=== PATIENT | female | born 1945 | race Caucasian/White ===

== ENCOUNTER 2017-05-04 12:52 | Inpatient (IN) | payer OTHER ==
[~2017-05-04] VITALS: Ht 170.2 cm; Wt 65.8 kg
[2017-05-04] MEDS ORDERED: GABAPENTIN100 MG (14:13)
[2017-05-04] MEDS ORDERED: ZOCOR40 MG (14:14)
[2017-05-04] MEDS ORDERED: GLIPIZIDE5 MG (14:14)
[2017-05-04] MEDS ORDERED: IRON18 MG (14:14)
[2017-05-04] MEDS ORDERED: ZESTRIL20 MG (14:15)
[2017-05-04] MEDS ORDERED: FOLGARD TABLET1 EACH (14:15)
[2017-06-03] MEDS ORDERED: GLIPIZIDE5 MG PO (14:10)
[2017-06-03] MEDS ORDERED: SIMVASTATIN40 MG PO (14:10)
[2017-06-03] MEDS ORDERED: TRAM1TAB98 PO (14:10)
[2017-06-03] MEDS ORDERED: LISINOPRIL20 MG PO (14:10)
[2017-06-03] MEDS ORDERED: HYDRALAZINE HCL25 MG PO (14:10)
== END 2017-06-03 16:52 | disposition home health service (06) | DRG 255 ==
LOC: ER 12:52 → MEDJ 20:59 → MEDI 20:59 → SEC-K 20:59 → MEDI 05-05 00:23 → MEDJ 05-23 13:25
PROC: 30233N1 Transfusion of Nonautologous Red Blood Cells into Peripheral Vein, Percutaneous Approach (ICD-10-PCS; principal; 2017-05-05)
PROC: BQ3MZZZ Magnetic Resonance Imaging (MRI) of Left Foot (ICD-10-PCS; 2017-05-05)
PROC: 0JBR0ZZ Excision of Left Foot Subcutaneous Tissue and Fascia, Open Approach (ICD-10-PCS; 2017-05-08)
PROC: 8E0ZXY6 Isolation (ICD-10-PCS; 2017-05-10)
PROC: 0JBR0ZZ Excision of Left Foot Subcutaneous Tissue and Fascia, Open Approach (ICD-10-PCS; 2017-05-12)
PROC: B44HZZZ Ultrasonography of Bilateral Lower Extremity Arteries (ICD-10-PCS; 2017-05-15)
PROC: 3E0F7GC Introduction of Other Therapeutic Substance into Respiratory Tract, Via Natural or Artificial Opening (ICD-10-PCS; 2017-05-16)
PROC: B246ZZZ Ultrasonography of Right and Left Heart (ICD-10-PCS; 2017-05-17)
PROC: 4A033R1 Measurement of Arterial Saturation, Peripheral, Percutaneous Approach (ICD-10-PCS; 2017-05-20)
PROC: 0W9B3ZX Drainage of Left Pleural Cavity, Percutaneous Approach, Diagnostic (ICD-10-PCS; 2017-05-21)
PROC: B32TYZZ Computerized Tomography (CT Scan) of Left Pulmonary Artery using Other Contrast (ICD-10-PCS; 2017-05-22)
PROC: B32SYZZ Computerized Tomography (CT Scan) of Right Pulmonary Artery using Other Contrast (ICD-10-PCS; 2017-05-22)
PROC: BH42ZZZ Ultrasonography of Bilateral Breasts (ICD-10-PCS; 2017-05-26)
PROC: 0Y6Q0Z0 Detachment at Left 1st Toe, Complete, Open Approach (ICD-10-PCS; 2017-05-27)
PROC: 0JBR0ZZ Excision of Left Foot Subcutaneous Tissue and Fascia, Open Approach (ICD-10-PCS; 2017-05-27)
DX: E11.52 Type 2 diabetes mellitus with diabetic peripheral angiopathy with gangrene (principal); I50.33 Acute on chronic diastolic (congestive) heart failure; J18.9 Pneumonia, unspecified organism; I96 Gangrene, not elsewhere classified; N17.8 Other acute kidney failure; J90 Pleural effusion, not elsewhere classified; J44.1 Chronic obstructive pulmonary disease with (acute) exacerbation; M86.672 Other chronic osteomyelitis, left ankle and foot; E78.4 Other hyperlipidemia; E11.42 Type 2 diabetes mellitus with diabetic polyneuropathy; E11.621 Type 2 diabetes mellitus with foot ulcer; L97.523 Non-pressure chronic ulcer of other part of left foot with necrosis of muscle; D64.89 Other specified anemias; B95.62 Methicillin resistant Staphylococcus aureus infection as the cause of diseases classified elsewhere; I27.29 Other secondary pulmonary hypertension; I10 Essential (primary) hypertension; R09.02 Hypoxemia; E11.69 Type 2 diabetes mellitus with other specified complication

== ENCOUNTER 2017-10-20 12:48 | Inpatient (IN) | payer OTHER ==
[~2017-10-20] VITALS: Ht 175.3 cm; Wt 61.2 kg
[~2017-10-20 12:48] MED LIST: FOLGARD TABLET1 EACH; GABAPENTIN100 MG; GLIPIZIDE5 MG; GLIPIZIDE5 MG PO; HYDRALAZINE HCL25 MG PO; IRON18 MG; LISINOPRIL20 MG PO; SIMVASTATIN40 MG PO; TRAM1TAB98 PO; ZESTRIL20 MG; ZOCOR40 MG
[2017-11-07] MEDS ORDERED: LIPITOR40 MG PO (09:33)
[2017-11-07] MEDS ORDERED: LOPRESSOR25 MG PO (09:33)
[2017-11-07] MEDS ORDERED: NORVASC2.5 M1 PO (09:33)
[2017-11-07] MEDS ORDERED: ASA-EC81 MG PO (09:34)
[2017-11-07] MEDS ORDERED: SERTRALINE HCL50 MG PO (09:38)
== END 2017-11-07 21:12 | disposition home or self-care (01) | DRG 673 ==
LOC: ER 12:48 → ICU-2 16:46 → MEDI 16:46 → ICU 16:46 → MEDI 10-28 20:34
PROC: 06HN33Z Insertion of Infusion Device into Left Femoral Vein, Percutaneous Approach (ICD-10-PCS; 2017-10-20)
PROC: 5A1D70Z Performance of Urinary Filtration, Intermittent, Less than 6 Hours Per Day (ICD-10-PCS; 2017-10-20)
PROC: 3E0F7GC Introduction of Other Therapeutic Substance into Respiratory Tract, Via Natural or Artificial Opening (ICD-10-PCS; 2017-10-20)
PROC: BW28ZZZ Computerized Tomography (CT Scan) of Head (ICD-10-PCS; 2017-10-20)
PROC: 30233N1 Transfusion of Nonautologous Red Blood Cells into Peripheral Vein, Percutaneous Approach (ICD-10-PCS; 2017-10-21)
PROC: BT43ZZZ Ultrasonography of Bilateral Kidneys (ICD-10-PCS; 2017-10-21)
PROC: 05H633Z Insertion of Infusion Device into Left Subclavian Vein, Percutaneous Approach (ICD-10-PCS; 2017-10-22)
PROC: 06PYX3Z Removal of Infusion Device from Lower Vein, External Approach (ICD-10-PCS; 2017-10-23)
PROC: 06HN33Z Insertion of Infusion Device into Left Femoral Vein, Percutaneous Approach (ICD-10-PCS; 2017-10-23)
PROC: B246ZZZ Ultrasonography of Right and Left Heart (ICD-10-PCS; 2017-10-27)
PROC: 0JBR0ZZ Excision of Left Foot Subcutaneous Tissue and Fascia, Open Approach (ICD-10-PCS; principal; 2017-10-31)
PROC: 05HM33Z Insertion of Infusion Device into Right Internal Jugular Vein, Percutaneous Approach (ICD-10-PCS; 2017-11-03)
PROC: B543ZZA Ultrasonography of Right Jugular Veins, Guidance (ICD-10-PCS; 2017-11-03)
DX: N17.8 Other acute kidney failure (principal); I21.A1 Myocardial infarction type 2; E87.2 Acidosis; J44.1 Chronic obstructive pulmonary disease with (acute) exacerbation; T82.41XA Breakdown (mechanical) of vascular dialysis catheter, initial encounter; I12.0 Hypertensive chronic kidney disease with stage 5 chronic kidney disease or end stage renal disease; L97.528 Non-pressure chronic ulcer of other part of left foot with other specified severity; I24.9 Acute ischemic heart disease, unspecified; J90 Pleural effusion, not elsewhere classified; R09.02 Hypoxemia; E87.5 Hyperkalemia; I27.29 Other secondary pulmonary hypertension; E78.4 Other hyperlipidemia; R39.2 Extrarenal uremia; E86.0 Dehydration; E11.22 Type 2 diabetes mellitus with diabetic chronic kidney disease; N18.6 End stage renal disease; D63.1 Anemia in chronic kidney disease; E11.621 Type 2 diabetes mellitus with foot ulcer; D69.59 Other secondary thrombocytopenia; Z89.422 Acquired absence of other left toe(s); Z78.1 Physical restraint status

== ENCOUNTER 2017-11-13 19:37 | Emergency (ER) | payer OTHER ==
[~2017-11-13] VITALS: Ht 152.4 cm; Wt 68.0 kg
[~2017-11-13 19:37] MED LIST changes: +ASA-EC81 MG PO; +LIPITOR40 MG PO; +LOPRESSOR25 MG PO; +NORVASC2.5 M1 PO; +SERTRALINE HCL50 MG PO
== END 2017-11-14 11:47 | disposition home or self-care (01) ==
LOC: ER 19:37
DX: R11.0 Nausea (principal); R53.1 Weakness; Z99.2 Dependence on renal dialysis

== ENCOUNTER 2018-01-12 11:50 | Emergency (ER) | payer OTHER ==
[~2018-01-12] VITALS: Ht 170.2 cm; Wt 62.6 kg
[2018-01-12] MEDS ORDERED: GLIPIZIDE5 MG (14:48)
[2018-01-12] MEDS ORDERED: LISINOPRIL20 MG (14:49)
[2018-01-12] MEDS ORDERED: HYDRALAZINE HCL25 MG (14:49)
== END 2018-01-12 21:04 | disposition home or self-care (01) ==
LOC: ER 11:50 → CPU-OBS 12:03 → ER 12:03
DX: R07.89 Other chest pain (principal); N18.6 End stage renal disease; Z99.2 Dependence on renal dialysis

== ENCOUNTER 2018-09-13 07:30 | Inpatient (IN) | payer OTHER ==
[~2018-09-13] VITALS: Ht 170.2 cm; Wt 74.8 kg
[~2018-09-13 07:30] MED LIST changes: +HYDRALAZINE HCL25 MG; +LISINOPRIL20 MG
[2018-09-18] MEDS ORDERED: DOXYCYCLINE HYC50 M2 PO (13:08)
== END 2018-09-18 16:09 | disposition home or self-care (01) | DRG 255 ==
LOC: ER 07:30 → SURH 19:32 → MEDJ 19:32 → SURH 20:06
PROVIDERS: Specialist; ADMIT Internal Medicine
PROC: 0Y6S0Z0 Detachment at Left 2nd Toe, Complete, Open Approach (ICD-10-PCS; principal; 2018-09-14 16:30)
DX: E11.52 Type 2 diabetes mellitus with diabetic peripheral angiopathy with gangrene (principal); N18.6 End stage renal disease; I96 Gangrene, not elsewhere classified; I12.0 Hypertensive chronic kidney disease with stage 5 chronic kidney disease or end stage renal disease; N17.8 Other acute kidney failure; Z79.4 Long term (current) use of insulin; E11.22 Type 2 diabetes mellitus with diabetic chronic kidney disease; Z99.2 Dependence on renal dialysis; Z88.0 Allergy status to penicillin; E11.40 Type 2 diabetes mellitus with diabetic neuropathy, unspecified; F32.89 Other specified depressive episodes